=== PATIENT | male | born 1970 ===

== ENCOUNTER 2018-11-26 09:43 | Emergency (ER) | payer SELFPAY ==
--- NOTE | 2018-11-26 10:48 | RAD ---
CHEST 2 VIEWS: Date: 11/26/18 HISTORY: 48-year-old male with history of cough and fever since Sunday. FINDINGS: Heart size is normal. The lungs are clear. IMPRESSION: No acute intrathoracic disease. No evidence for pneumonia. POS: [facility]
== END 2018-11-26 10:35 | disposition home or self-care (01) ==
LOC: ERS 09:43
DX: J20.9 Acute bronchitis, unspecified (principal); Z71.6 Tobacco abuse counseling; F17.210 Nicotine dependence, cigarettes, uncomplicated
CPT/HCPCS: 71046; 87804; 99406